=== PATIENT | female | born 1965 | race Caucasian/White ===

== ENCOUNTER 2018-11-11 12:32 | Emergency (ER) | payer SELFPAY ==
--- NOTE | 2018-11-11 13:25 | EDM.PDOC ---
ED HPI GENERAL MEDICAL PROBLEM - General Chief Complaint: Gastrointestinal Problem Stated Complaint: ABDOMINAL PAIN Time Seen by Provider: 11/11/18 12:51 Source of Information: Reports: Patient History Limitations: Reports: No Limitations - History of Present Illness INITIAL COMMENTS - FREE TEXT/NARRATIVE: 53-year-old female presents for constipation. Nursing staff was called out for assistance with the patient who was "unresponsive". Patient was found in the backseat. Was responsive, answering questions appropriately. She is brought in by her roommate. She states that her roommate must of caught her at "a bad time ". Patient is currently complaining of constipation. She states that she has not had a bowel movement in one month. She has tried MiraLAX, Aloe vera, and colon cleanse but she has not had a bowel movement. She states she continues to pass gas. She is having some minor abdominal discomfort. Reports associated symptoms of nausea, lightheadedness, fatigue and weakness. She denies any vomiting. She does not know if she's had any blood in her stool prior to the constipation. She states that she usually utilizes coffee or her brother who is a chiropractor and will manipulate the stool her abdomen. patient is from from [place] and she has no primary care provider here. Previous abdominal surgeries include a and management of an ectopic . When asked about urinary symptoms she states she has had No dysuria. Questions if she has an STD. She states that she has vaginal discharge. Abdominal Pain Score (Numeric/FACES): 6 - Related Data Allergies Allergy/AdvReac Type Severity Reaction Status Date / Time No Known Allergies Allergy Verified 11/11/18 12:36 Past Medical History Gastrointestinal History: Reports: Chronic Constipation Psychiatric History: Reports: Depression Social & Family History - Tobacco Use Smoking Status *Q: Current Every Day Smoker Years of Tobacco use: 27 Packs/Tins Daily: 0.5 - Recreational Drug Use Recreational Drug Use: No ED ROS GENERAL - Review of Systems Review Of Systems: See Below GI/Abdominal: Reports: Abdominal Pain (minor), Constipation, Flatus. Denies: Vomiting : Reports: Discharge. Denies: Dysuria ED EXAM, GI/ABD - Physical Exam Exam: See Below Exam Limited By: No Limitations General Appearance: Alert, WD/WN, No Apparent Distress Ears: Normal External Exam Nose: Normal Inspection Throat/Mouth: Normal Inspection, Normal Voice, No Airway Compromise Respiratory/Chest: No Respiratory Distress, Lungs Clear, Normal Breath Sounds Cardiovascular: Normal Peripheral Pulses, Regular Rate, Rhythm, No Murmur GI/Abdominal Exam: Normal Bowel Sounds, Soft, Non-Tender, No Distention Neurological: Alert, Oriented, Normal Cognition Psychiatric: Normal Affect, Normal Mood Skin Exam: Warm, Dry, Normal Color Course - Vital Signs Last Recorded V/S: Last Vital Signs Temp 97.8 F 11/11/18 12:34 Pulse 90 11/11/18 12:34 Resp 16 11/11/18 12:34 BP 119/89 11/11/18 12:34 Pulse Ox 98 11/11/18 12:34 - Orders/Labs/Meds Orders: Active Orders 24 hr Category Date Time Status Abdomen 1V Flat [CR] Stat Exams 11/11/18 12:53 Ordered GC/CHLAMYDIA BY PCR [MOLEC] Stat Lab 11/11/18 12:53 Ordered Departure - Departure Time of Disposition: 13:20 Disposition: Against Medical Advice 07 Condition: Undetermined Clinical Impression: Constipation - Discharge Information *PRESCRIPTION DRUG MONITORING PROGRAM REVIEWED*: No *COPY OF PRESCRIPTION DRUG MONITORING REPORT IN PATIENT JONO: No Referrals: PCP,Not In Area [Primary Care Provider] - Additional Instructions: Patient decided to leave AMA prior to any testing - My Orders Last 24 Hours: My Active Orders 11/11/18 12:53 Abdomen 1V Flat [CR] Stat GC/CHLAMYDIA BY PCR [MOLEC] Stat - Assessment/Plan Last 24 Hours: My Active Orders 11/11/18 12:53 Abdomen 1V Flat [CR] Stat GC/CHLAMYDIA BY PCR [MOLEC] Stat
== END 2018-11-11 13:10 | disposition left against medical advice (07) ==
LOC: JD.ED 12:32
DX: K59.00 Constipation, unspecified (principal); F17.210 Nicotine dependence, cigarettes, uncomplicated
CPT/HCPCS: 99281; 99283

== ENCOUNTER 2023-12-27 22:31 | Emergency (ER) | payer SELFPAY ==
[2023-12-28] MEDS: Lidocaine 2% with EPINEPHrine 1:100,000 20 ML MDV INJECT ONE (00:42)
== END 2023-12-28 01:10 | disposition home or self-care (01) ==
LOC: JD.ED 22:31
DX: S81.811A Laceration without foreign body, right lower leg, initial encounter (principal); F17.210 Nicotine dependence, cigarettes, uncomplicated; W26.8XXA Contact with other sharp object(s), not elsewhere classified, initial encounter
CPT/HCPCS: 12002; 99282; 99283; J3490